=== PATIENT | male | born 1995 | race Caucasian/White ===

== ENCOUNTER 2022-07-29 21:24 | Emergency (ER) | payer OTHER ==
[2022-07-29 21:36] VITALS: BP 117/76; PULSE 92; RESP 20; TEMP 98.1; BMI 24.3
[2022-07-29] MEDS ORDERED: ACETAMINOPHEN 325 MG TABLET (FP) PO ONE (23:57)
[2022-07-30] MEDS ORDERED: ACETAMINOPHEN 325 MG TABLET (FP) ONE (00:08)
== END 2022-07-30 01:12 | disposition home or self-care (01) ==
LOC: JER 21:24
DX: H53.8 Other visual disturbances (principal)
CPT/HCPCS: 70450-TC; 82962; 99284-25